=== PATIENT | male | born 1975 | race Caucasian/White ===

== ENCOUNTER 2021-07-12 21:57 | Emergency (ER) | payer BC, OTHER ==
[2021-07-12 22:57] VITALS: BP 179/92; PULSE 80
--- NOTE | 2021-07-12 22:58 | EDM.PDOC ---
ED HPI GENERAL MEDICAL PROBLEM - General Chief Complaint: Laceration Stated Complaint: CUT PINKY ON RIGHT HAND Time Seen by Provider: 07/12/21 22:52 - History of Present Illness INITIAL COMMENTS - FREE TEXT/NARRATIVE: History of present illness: [] Patient got his hand caught between a muffler another part while he was trying to tear apart a pickup for parts. It happened prior to arrival and it stopped bleeding but then when he moved his fingers about it bled again. He has laceration on the pinky of the right hand. He is right-hand dominant. The lacerations in the proximal segment along the ulnar edge of the fifth digit. He has no loss of function and no significant tenderness in the bone. Review of systems: As per history of present illness and below otherwise all systems reviewed and negative. Past medical history: As per history of present illness and as reviewed below otherwise noncontributory. Surgical history: As per history of present illness and as reviewed below otherwise noncontributory. Social history: No reported history of drug or alcohol abuse. Family history: As per history of present illness and as reviewed below otherwise noncontributory. Physical exam: Constitutional - well developed, well-nourished and in no acute distress HEENT - normocephalic, no evidence of trauma - external nose and mouth normal - no mass in neck and no JVD - mucosae moist EYES - full EOM, PERRL, no icterus - no evidence of inflammation, injection, or drainage Respiratory - no respiratory distress, equal bilateral expansion, lungs clear to auscultation and no abnormal lung sounds Cardiovascular -color warmth and refill are good in the distal right upper extremity. Regular Rhythm with S1 and S2 appreciated and no murmur, gallop or rub. GI - abdomen soft without distension or organomegaly - normal bowel sounds - no guard or rebound Musculoskeletal no tenderness in the bones of the right upper extremity at the hand. No gross deformity of long bones or joints - no tenderness, swelling or edema Neurologic -no sensory motor or functional deficit in the digits of the right upper extremity. Alert and oriented times four - CN II-XII grossly intact - motor sensory and coordination symmetrically normal Psychiatric - appropriate mood and affect with normal thought content Hematologic - No petechiae or purpura - mucosa appropriate color and sclera not pale - normal nail bed color and refill Integument -1.5 cm laceration longitudinally along the proximal segment of the fifth digit of the right hand on the ulnar edge no rash or evidence of trauma - normal turgor Diagnostics: [] Therapeutics: [] Impression: [] Plan: [] Definitive disposition and diagnosis as appropriate pending reevaluation and review of above. Right Finger-Little Pain Score (Numeric/FACES): 2 - Related Data Allergies Allergy/AdvReac Type Severity Reaction Status Date / Time No Known Allergies Allergy Verified 07/12/21 22:52 Home Meds: Home Meds . [No Known Home Meds] 02/26/15 [History] Past Medical History - Past Health History Medical/Surgical History: Denies Medical/Surgical History ED ROS GENERAL - Review of Systems Review Of Systems: Comprehensive ROS is negative, except as noted in HPI. ED EXAM, SKIN/RASH Exam: See Below Text/Narrative:: My physical exam is in the HPI ED SKIN PROCEDURES - Laceration/Wound Repair Right Digit - 5th (Baby) Appearance: Superficial, Subcutaneous Distal NVT: Neuro & Vascular Intact, No Tendon Injury Anesthetic Type: Local Local Anesthesia - Lidocaine (Xylocaine): 1% Plain Local Anesthetic Volume: 5cc Skin Prep: Providone-Iodine (Betadine), Saline Saline Irrigation (cc's): 250 Exploration/Debridement/Repair: Wound Explored, In a Bloodless Field Closed with: Sutures Lac/Wound length In cm: 1.5 Suture Size: 4-0 # of Sutures: 3 Suture Type: Nylon Course - Vital Signs Last Recorded V/S: Last Vital Signs Temp 36.5 C 07/12/21 22:52 Pulse 80 07/12/21 22:52 Resp 16 07/12/21 22:52 BP 179/92 H 07/12/21 22:52 Pulse Ox 97 07/12/21 22:52 - Orders/Labs/Meds Meds: Medications Discontinued Medications Generic Name Dose Route Start Last Admin Trade Name Frerobert PRN Reason Stop Dose Admin Lidocaine HCl 5 ml 07/12/21 22:55 Lidocaine 1% 5 Ml Sdv INJECT 07/12/21 22:56 ONETIME ONE Departure - Departure Time of Disposition: 23:51 Disposition: Home, Self-Care 01 Condition: Good Clinical Impression: Laceration of finger - Discharge Information Instructions: Laceration Care, Adult Referrals: PCP,None [Primary Care Provider] - Forms: ED Department Discharge Additional Instructions: Sutures out 7 to 10 days. Return if any loss of function or redness swelling redness with heat or streaks up the arm. [facility] - [facility] [address] [place] [address] [facility] [address] [place] [address] The following information is given to patients seen in the emergency department who are being discharged to home. This information is to outline your options for follow-up care. We provide all patients seen in our emergency department with a follow-up referral. The need for follow-up, as well as the timing and circumstances, are variable depending upon the specifics of your emergency department visit. If you don't have a primary care physician on staff, we will provide you with a referral. We always advise you to contact your personal physician following an emergency department visit to inform them of the circumstance of the visit and for follow-up with them and/or the need for any referrals to a consulting specialist. The emergency department will also refer you to a specialist when appropriate. This referral assures that you have the opportunity for follow-up care with a specialist. All of these measure are taken in an effort to provide you with optimal care, which includes your follow-up. Under all circumstances we always encourage you to contact your private physician who remains a resource for coordinating your care. When calling for follow-up care, please make the office aware that this follow-up is from your recent emergency room visit. If for any reason you are refused follow-up, please contact the [facility] Emergency Department at and asked to speak to the emergency department charge nurse. Sepsis Event Note (ED) - Focused Exam Vital Signs: Vital Signs Temp Pulse Resp BP Pulse Ox 07/12/21 22:52 36.5 C 80 16 179/92 H 97
== END 2021-07-13 00:01 | disposition home or self-care (01) ==
LOC: MW.ED 21:57
DX: S61.216A Laceration without foreign body of right little finger without damage to nail, initial encounter (principal); W23.0XXA Caught, crushed, jammed, or pinched between moving objects, initial encounter
CPT/HCPCS: 12001; 99282-25

== ENCOUNTER 2022-02-02 14:12 | Emergency (ER) | payer BC ==
[2022-02-02] MEDS ORDERED: Ondansetron 4 MG/2 ML SDV IVPUSH ONE (14:57)
[2022-02-02] MEDS ORDERED: Sodium Chloride 0.9% 1,000 ML IV ONE ×2 (14:57→16:45)
[2022-02-02] MEDS ORDERED: Ketorolac 30 MG/ML SDV IVPUSH ONE (14:58)
[2022-02-02 15:44] LABS: BLOOD UREA NITROGEN,BUN 9 mg/dL (7.0-18.0); CARBON DIOXIDE,CO2 28.8 mmol/L (21.0-32.0); CHLORIDE,CL 102 mmol/L (98-107); GLUCOSE RANDOM 108 mg/dL (74-106); LIPASE 1018 U/L (73-393); SODIUM,NA 141 mmol/L (136-148)
[2022-02-02] MEDS ORDERED: Morphine 4 MG/ML VIAL IVPUSH ONE (16:56)
[2022-02-02 17:20] VITALS: BP 148/95; PULSE 65
[2022-02-02 18:38] LABS: CORONAVIRUS COVID-19 NAA NEGATIVE (NEGATIVE); INFLUENZA A NAA NEGATIVE (NEGATIVE); INFLUENZA B NAA NEGATIVE (NEGATIVE)
== END 2022-02-02 18:16 ==
LOC: MW.ED 14:12
DX: K80.21 Calculus of gallbladder without cholecystitis with obstruction (principal); K85.10 Biliary acute pancreatitis without necrosis or infection; Z20.822 Contact with and (suspected) exposure to COVID-19
CPT/HCPCS: 0240U; 36415; 76705; 80053; 81003; 83690; 85025; 96374; 96375; 99285; J1885; J2405; J7030; 99284

== ENCOUNTER 2022-02-25 06:36 | Day surgery (SDC) | payer BC ==
[~2022-02-25 06:36] MED LIST: Acetaminophen 1,000 MG in Premix Bag 1 BAG IV SCH; Lactated Ringers 1,000 ML IV SCH; Pregabalin 75 MG Cap PO SCH; cefOXitin 2 GM in Premix Bag 1 BAG IV SCH
[2022-02-25] MEDS ORDERED: Propofol 200 MG/20 ML SDV ONE (07:09)
[2022-02-25] MEDS ORDERED: fentaNYL 250 MCG/5 ML SDV ONE (07:10)
[2022-02-25] MEDS ORDERED: Octyl 2-Cyanoacrylate 1 Tube ONE (07:24)
[2022-02-25] MEDS ORDERED: Bupivacaine 0.25% 10 ML SDV ONE (07:25)
[2022-02-25] MEDS ORDERED: Metoclopramide 10 MG/2 ML SDV IVPUSH PRN (07:34)
[2022-02-25] MEDS ORDERED: HYDROmorphone 1 MG/ML Syringe IVPUSH PRN (07:34)
[2022-02-25] MEDS ORDERED: Morphine 2 MG/ML SYRINGE IVPUSH PRN (07:34)
[2022-02-25] MEDS ORDERED: Naloxone 0.4 MG/ML SDV IVPUSH PRN (07:34)
[2022-02-25] MEDS ORDERED: Ondansetron 4 MG/2 ML SDV IVPUSH PRN (07:34)
[2022-02-25] MEDS ORDERED: fentaNYL 100 MCG/2 ML SDV IVPUSH PRN (07:34)
[2022-02-25] MEDS ORDERED: Albuterol 0.083% 2.5 MG/3 ML Neb Soln NEB PRN (07:34)
[2022-02-25] MEDS ORDERED: fentaNYL 100 MCG/2 ML SDV ONE ×2 (08:58→09:12)
[2022-02-25] MEDS ORDERED: Sugammadex Sodium 200 MG/2 ML VIAL ONE (09:47)
[2022-02-25] MEDS ORDERED: Dexamethasone 4 MG/ML 5 ML MDV ONE (09:47)
[2022-02-25] MEDS ORDERED: ePHEDrine 50 MG/ML SDV ONE (09:47)
[2022-02-25] MEDS ORDERED: Rocuronium Bromide 50 MG/5 ML Syringe ONE (09:47)
[2022-02-25] MEDS ORDERED: Ondansetron 4 MG/2 ML SDV ONE (09:47)
[2022-02-25] MEDS ORDERED: HYDROmorphone 2 MG/ML Syringe ONE (10:02)
[2022-02-25] MEDS ORDERED: cefOXitin 1 GM Vial ONE (10:20)
[2022-02-25] MEDS ORDERED: Lidocaine 2% Jelly 30 ML Tube ONE (10:20)
[2022-02-25] MEDS ORDERED: Ondansetron 4 MG Tab.DIS PO ONE (13:42)
[2022-02-25 14:06] VITALS: BP 125/63; PULSE 70
== END 2022-02-25 15:05 | disposition home or self-care (01) ==
LOC: MW.SDS 06:36
PROVIDERS: ATTEND Surgery
DX: K80.10 Calculus of gallbladder with chronic cholecystitis without obstruction (principal); J45.909 Unspecified asthma, uncomplicated; Z87.891 Personal history of nicotine dependence; Z98.890 Other specified postprocedural states
CPT/HCPCS: 47562; A9270; J0131; J0694; J1100; J1170; J2370; J2405; J2704; J3010; J3490; J7030; J7120; 00790